=== PATIENT | female | born 1990 | race Caucasian/White ===

== ENCOUNTER → 2021-07-03 | Outpatient (CLI) | payer BC ==
[2021-07-04 01:00] LABS: HCT 43.7 % (37.2-46.3); HGB 14.3 g/dL (12.0-15.0); MCHC 32.7 g/dL (32.0-37.0); MCV 94.6 fL (80.0-97.0); NRBC Per 100 WBC 0 /100 WBCS (0.0-0.0); Platelet Count 249 X 10*3/uL (140-440); RBC 4.62 X 10*6/uL (4.10-5.20); RDW 11.8 % (11.5-14.5); WBC 7.61 X 10*3/uL (4.50-10.00)
[2021-07-04 01:18] LABS: African American GFR (CKD) 137.3 (60.0-200.0); Albumin 5.1 g/dL (3.8-4.9); Albumin/Globulin Ratio 2.18 (1.60-3.17); Anion Gap 13.8 mmol/L (10.00-18.00); BUN/Creat Ratio 12.77 Ratio (12.00-20.00); Blood Urea Nitrogen 8.6 mg/dL (9.0-27.0); Calcium 9.6 mg/dL (8.7-10.3); Carbon Dioxide 22.9 mmol/L (20.0-27.5); Globulin 2.3 g/dL (1.6-3.3); Non-African American GFR(CKD) 118.5 (60.0-200.0); Potassium 3.9 mmol/L (3.5-5.5); Total Bilirubin 0.9 mg/dL (0.30-1.20); Total Protein 7.4 g/dL (6.2-8.2)
[2021-07-04 12:10] LABS: Lead, Blood <0.5 ug/dL (<5.0)
== END | disposition home or self-care (01) ==
LOC: LABWHC1 15:07
PROVIDERS: ATTEND Family Medicine
DX: M25.549 Pain in joints of unspecified hand (principal); R53.83 Other fatigue; R20.0 Anesthesia of skin
CPT/HCPCS: 36415; 80053; 82175; 82570; 82607; 83655; 83825; 84443; 85027; 86038